=== PATIENT | female | born 1990 | race Caucasian/White ===

== ENCOUNTER 2022-05-19 06:51 | Day surgery (SDC) | payer OTHER ==
[2022-05-19] VITALS (230 sets, daily range): BP systolic 85–144; BP diastolic 48–93
[2022-05-19 07:34] LABS: BASO% 0.6 % (0-3); EOS% 0.8 % (0-8); HEMATOCRIT 36.8 % (37.0-47.0); HEMOGLOBIN 12.3 g/dl (12.0-16.0); IMMATURE GRANULOCYTES 0.2 % (0.0-5.0); LYMPH% 27.6 % (15-41); MEAN CELL VOLUME 91.3 fL CALC (80.0-100.0); MEAN CORPUSCULAR HGB 30.5 pG CALC (26.0-32.0); MEAN CORPUSCULAR HGB CONC 33.4 g/dL CAL (32.0-36.0); MONO% 6.8 % (2-13); NEUT# 4.06 thou/uL (2.00-7.15); RED BLOOD COUNT 4.03 mill/uL (4.20-5.60); RED CELL DISTRI WIDTH 12.1 % (11.5-15.5)
[2022-05-19 07:48] LABS: ALBUMIN 4.4 g/dL (3.2-5.0); ALKALINE PHOSPHATASE 50 u/l (38-126); ANION GAP 10 (6-22 (CALC)); BILIRUBIN, TOTAL 0.6 mg/dL (0.0-1.4); BUN 15 mg/dL (7-17); BUN/CREATININE RATIO 25 (12-20 (CALC)); CARBON DIOXIDE 29 mmol/l (22-30); CHLORIDE 104 mmol/l (95-108); CREATININE 0.6 mg/dL (0.5-1.0); GFR FOR AFR.AMER. > 60 ML/MIN (>=60 (CALC)); GFR OTHER RACES > 60 ML/MIN (>=60 (CALC)); POTASSIUM 3.8 mmol/l (3.5-5.1); SGOT/AST 20 u/l (14-36); SODIUM 139 mmol/l (137-146); TOTAL PROTEIN 7.1 g/dL (6.3-8.2)
[2022-05-19] MEDS ORDERED: NALTREXONE50 MG PO (17:05)
[2022-05-19] MEDS ORDERED: KLONOPIN2 MG PO (17:06)
[2022-05-19] MEDS ORDERED: CLONIDINE0.1 MG PO (17:06)
[2022-05-20 03:30] VITALS: BP 93/56
[2022-05-20 04:24] VITALS: BP 100/64
[2022-05-20 06:04] LABS: BASO% 0.3 % (0-3); EOS% 0.1 % (0-8); HEMATOCRIT 35.8 % (37.0-47.0); HEMOGLOBIN 11.6 g/dl (12.0-16.0); IMMATURE GRANULOCYTES 0.2 % (0.0-5.0); LYMPH% 15.2 % (15-41); MEAN CELL VOLUME 91.3 fL CALC (80.0-100.0); MEAN CORPUSCULAR HGB 29.6 pG CALC (26.0-32.0); MEAN CORPUSCULAR HGB CONC 32.4 g/dL CAL (32.0-36.0); MONO% 5.6 % (2-13); NEUT# 7.74 thou/uL (2.00-7.15); NEUT% 78.6 % (42-76); RED BLOOD COUNT 3.92 mill/uL (4.20-5.60)
[2022-05-20 06:08] LABS: ALBUMIN 3.8 g/dL (3.2-5.0); ALKALINE PHOSPHATASE 45 u/l (38-126); ANION GAP 10 (6-22 (CALC)); BILIRUBIN, TOTAL 0.5 mg/dL (0.0-1.4); BUN 11 mg/dL (7-17); BUN/CREATININE RATIO 19 (12-20 (CALC)); CHLORIDE 110 mmol/l (95-108); CREATININE 0.6 mg/dL (0.5-1.0); GFR FOR AFR.AMER. > 60 ML/MIN (>=60 (CALC)); GFR OTHER RACES > 60 ML/MIN (>=60 (CALC)); MAGNESIUM 2.3 mg/dL (1.6-2.3); POTASSIUM 4.1 mmol/l (3.5-5.1); SGOT/AST 21 u/l (14-36); SODIUM 138 mmol/l (137-146); TOTAL PROTEIN 6.3 g/dL (6.3-8.2)
[2022-05-20 06:12] LABS: CARBON DIOXIDE 22 mmol/l (22-30)
[2022-05-20 07:01] VITALS: BP 96/63
== END 2022-05-20 12:36 | disposition home or self-care (01) | DRG 897 ==
LOC: ANR 06:51 → MS2 06:51 → ANR 07:00 → MS2 15:28 → ANR 05-20 12:36
PROVIDERS: ATTEND Anesthesiology Critical Care Medicine
DX: F11.20 Opioid dependence, uncomplicated (principal)
CPT/HCPCS: J2354; J3475